=== PATIENT | male | born 1950 | race Caucasian/White ===

== ENCOUNTER 2017-08-20 20:02 | Emergency (ER) | payer OTHER ==
[~2017-08-20] VITALS: Ht 167.6 cm; Wt 76.7 kg
[2017-08-20 21:24] LABS: PLATELET COUNT 161 x10^3mcL (130-400); RED CELL DISTRIBUTION WIDTH 13.4 % (11.5-14.5)
[2017-08-20 21:27] LABS: BASOPHIL % 0 % (0-2)
[2017-08-20 21:38] LABS: CALCIUM 8.1 mg/dL (8.5-10.1); CARBON DIOXIDE 25.8 mmol/L (21-32); CHLORIDE SERUM 99 mmol/L (98-107); CREATININE SERUM 1.1 mg/dL (0.7-1.3); GFR1 > 60 mL/min; GLUCOSE SERUM 178 mg/dL (74-106); POTASSIUM SERUM 3.9 mmol/L (3.5-5.1); SODIUM SERUM 135 mmol/L (136-145)
[2017-08-20 21:49] LABS: ALKALINE PHOSPHATASE 73 U/L (46-116); ALT/SGPT 37 U/L (16-63); AST/SGOT 27 U/L (15-37); BILIRUBIN TOTAL 0.4 mg/dL (0.20-1.00); TOTAL PROTEIN, SERUM 7.1 g/dL (6.4-8.2)
[2017-08-20 21:50] LABS: ALBUMIN 3.1 g/dL (3.4-5.0)
[2017-08-20 22:55] VITALS: BP 121/94
== END 2017-08-20 22:55 | disposition home or self-care (01) ==
LOC: ED 20:02
PROVIDERS: Emergency Medicine
DX: R55 Syncope and collapse (principal); R05 Cough; I10 Essential (primary) hypertension
CPT/HCPCS: 36415; Q0092